=== PATIENT | female | born 1965 | race African-American/Black ===

== ENCOUNTER 2018-09-13 12:34 | Outpatient (CLI) | payer MEDICARE, OTHER ==
--- NOTE | 2018-09-13 14:52 | ULT ---
THYROID ULTRASOUND: INDICATIONS: Abnormal thyroid blood test. FINDINGS: Both lobes of the thyroid are mildly prominent in size, with the right lobe measuring 5.8 x 2.0 x 2.0 cm and the left lobe measuring 5.4 x 1.7 x 2.4 cm. Both lobes exhibit a homogeneous echotexture. In the left lobe, there are three hypoechoic nodules present. All three of these appear partially cy stic. The largest mid left lobe measures 1.3 x 1.0 cm. Another, slightly more inferior, measures 0. 5 x 0.8 x 1.2 cm. The smaller inferior left lobe measures 0.7 to 0.8 cm. In the right lobe, there are several tiny, hypoechoic, cystic appearing nodules. The largest in the inferior right lobe measures 3 to 4 mm. IMPRESSION: There are three partially cystic, complex nodules seen in the left lobe, as described above. Recomme nd six-month follow-up thyroid ultrasound to confirm stability. POS: JOEL
--- NOTE | 2018-09-29 15:48 | MMO ---
Bilateral MAMMO Bilat Screen [facility]. CLINICAL HISTORY: Patient is 53 years old and is seen for screening. The patient has no family history of breast cancer. 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 VIEWS: The views performed were: bilateral craniocaudal with tomosynthesis and bilateral mediolateral oblique with tomosynthesis. FILMS COMPARED: The present examination has been compared to prior imaging studies performed at [facility] on 03/15/2007 and 09/27/2014. MAMMOGRAM FINDINGS: There are scattered fibroglandular densities. There are vascular calcifications seen in both breasts. There are no suspicious masses, suspicious calcifications, or new areas of architectural distortion. IMPRESSION: A ROUTINE FOLLOW-UP MAMMOGRAM IN 1 YEAR IS RECOMMENDED. THE RESULTS OF THIS EXAM WERE SENT TO THE PATIENT. ACR BI-RADS Category 2 - Benign finding MAMMOGRAPHY NOTE: 1. A negative mammogram report should not delay a biopsy if a dominant of clinically suspicious mass is present. 2. Approximately 10% to 15% of breast cancers are not detected by mammography. 3. Adenosis and dense breasts may obscure an underlying neoplasm.
== END 2018-09-13 12:35 | disposition home or self-care (01) ==
LOC: BICMAMMO 12:34
PROVIDERS: ATTEND Family Medicine
DX: Z12.31 Encounter for screening mammogram for malignant neoplasm of breast (principal); R94.6 Abnormal results of thyroid function studies; E04.2 Nontoxic multinodular goiter; Z85.3 Personal history of malignant neoplasm of breast
CPT/HCPCS: 76536; 77063; 77067

== ENCOUNTER 2018-10-11 10:56 | Outpatient (CLI) | payer MEDICARE, MEDICAID ==
--- NOTE | 2018-10-11 12:28 | ULT ---
Renal sonogram with duplex evaluation HISTORY: Chronic renal disease. Hypertension. FINDINGS: The right kidney is 9.4 cm. Cysts arise from the cortex, measuring up to 2.1 cm the inferio r pole. No solid mass or hydronephrosis. Left kidney is 10.6 cm. Cysts arise from the cortex, measuring up to 2.2 cm medially. No hydronephros is or solid mass. Urinary bladder has a normal appearance. Good color and spectral Doppler flow within the abdominal aorta and renal arteries. No abnormally alexander vated peak systolic velocities. Resistive indices associated with arcuate arteries of each kidney are 0.6. IMPRESSION: No evidence of urinary tract obstruction. Renal cysts incidentally noted. No sonographic evidence of significant renal artery stenosis.
== END 2018-10-11 10:57 | disposition home or self-care (01) ==
LOC: ULT 10:56
PROVIDERS: ATTEND Internal Medicine Nephrology
DX: I12.9 Hypertensive chronic kidney disease with stage 1 through stage 4 chronic kidney disease, or unspecified chronic kidney disease (principal); N18.3 Chronic kidney disease, stage 3 (moderate)
CPT/HCPCS: 76700; 76770

== ENCOUNTER 2021-08-03 18:16 | Inpatient (IN) | payer MEDICARE, OTHER ==
[2021-08-03] MEDS ORDERED: Morphine 4 MG/ML VIAL ONE (21:45)
[2021-08-03] MEDS ORDERED: Ondansetron PF 4 MG/2 ML Vial IVP PRN (22:15)
[2021-08-03] MEDS ORDERED: Acetaminophen 325 MG TAB PO PRN (22:15)
[2021-08-03] MEDS ORDERED: Ondansetron ODT 4 MG TAB SL PRN (22:15)
[2021-08-03] MEDS ORDERED: Heparin 10,000 UNITS/ 10 ML VIAL SLOW IVP SCH (22:30)
[2021-08-03] MEDS ORDERED: Heparin 25,000 units/D5W 500 ML IV SCH (22:30)
[2021-08-03 23:00] LABS: ALT (SGPT) 711 U/L (8-55); AST (SGOT) 1908 U/L (5-34); Albumin 3.5 g/dL (3.5-5.0); Alkaline Phosphatase 80 U/L (40-110); Bilirubin, Direct 0.4 mg/dL (0.1-0.3); Bilirubin, Total 0.5 mg/dL (0.2-1.2); Protein, Total 7.3 g/dL (6.0-8.3)
[2021-08-03 23:45] LABS: Acetaminophen Less than 6.0 mcg/mL (10.0-30.0)
[2021-08-04 00:58] VITALS: BMI 25.6
[2021-08-04] MEDS: Sodium Chloride 0.9% 1,000 ML IV SCH ×3 (01:26→21:04)
[2021-08-04] MEDS: Morphine 4 MG/ML VIAL SLOW IVP PRN ×2 (01:32→05:47)
[2021-08-04 04:39] LABS: Anion Gap 7 mmol/L (10-20); BUN (Urea Nitrogen) 26 mg/dL (9.8-20.1); Calc. Creatinine Clearance 40 mL/min (70-130); Calcium 9.9 mg/dL (7.8-10.44); Carbon Dioxide 22 mmol/L (22-29); Chloride 115 mmol/L (98-107); Glucose 104 mg/dL (70-105); Potassium 4.1 mmol/L (3.5-5.1); Sodium 140 mmol/L (136-145)
[2021-08-04 05:11] LABS: HBSAg Index 0.22 S/CO (0-0.99); Hep B Surf Ag Non-Reactive S/CO (NonReactive)
[2021-08-04 05:13] LABS: HBCM Index 0.07 S/CO (0-0.79); Hep A IgM AB Non-Reactive (NonReactive); Hep A IgM S/CO 0.12 S/CO (0-0.79); Hepatitis B Core IgM Abs Non-Reactive (NonReactive)
[2021-08-04 05:14] LABS: Hep C IgG Ab Reflex HepC Qnt (NonReactive); Hep C Index 6.02 S/CO (0-0.79)
[2021-08-04 05:31] LABS: Hemoglobin 14.1 g/dL (12.0-16.0); Mean Corpuscular HGB CONC 32.2 g/dL (32.0-36.0); Mean Corpuscular Hemoglobin 32.9 pg (27.0-31.0); Mean Platelet Volume 7.6 fL (7.4-10.4); Platelet Count 188 thou/uL (130-400); RBC Distribution Width 12.3 % (11.5-14.5); White Blood Cell (WBC) Count 6.4 thou/uL (4.8-10.8)
[2021-08-04] MEDS: Dextrose 5 %-0.45 % NaCl 1,000 ML IV SCH ×2 (05:46→10:08)
[2021-08-04 06:33] LABS: Band 7 % (5-11); Lymphocytes 28 % (21-51); MDiff Complete? YES; Monocytes 2 % (0-10); Neutrophil 63 % (42-75)
[2021-08-04 06:53] LABS: SARS-CoV-2 NAA Rapid Test Not Detected (NotDetected)
[2021-08-04 07:06] LABS: PTT 234.4 sec (22.9-36.1)
[2021-08-04] MEDS: Fentanyl 100 MCG/2 ML VIAL SLOW IVP PRN ×3 (12:01→20:56)
[2021-08-04] MEDS ORDERED: Aspirin 81 mg Enteric Coated Tablet PO SCH (15:30)
[2021-08-04] MEDS: Enoxaparin Sodium 40 MG/0.4 ML SYRINGE SC SCH (20:58)
[2021-08-05] MEDS: Fentanyl 100 MCG/2 ML VIAL SLOW IVP PRN ×2 (03:02→22:00)
[2021-08-05] MEDS: Enoxaparin Sodium 40 MG/0.4 ML SYRINGE SC SCH (08:33)
[2021-08-05] MEDS: Sodium Chloride 0.9% 1,000 ML IV SCH ×2 (08:35→18:33)
[2021-08-05] MEDS: Morphine 4 MG/ML VIAL SLOW IVP PRN ×4 (08:36→19:36)
[2021-08-05] MEDS ORDERED: Aspirin 81 mg Enteric Coated Tablet PO SCH (09:00)
[2021-08-05 10:28] LABS: ALT (SGPT) 397 U/L (8-55); AST (SGOT) 239 U/L (5-34); Albumin 3.4 g/dL (3.5-5.0); Alkaline Phosphatase 78 U/L (40-110); Bilirubin, Direct 0.4 mg/dL (0.1-0.3); Bilirubin, Total 0.5 mg/dL (0.2-1.2); Protein, Total 7.2 g/dL (6.0-8.3)
[2021-08-05] MEDS ORDERED: Heparin 10,000 UNITS/ 10 ML VIAL ONE (12:28)
[2021-08-05] MEDS ORDERED: hydrALAZINE 20 MG/ML VIAL ONE (13:01)
[2021-08-05] MEDS ORDERED: Fentanyl 100 MCG/2 ML VIAL ONE (13:02)
[2021-08-05] MEDS ORDERED: Amlodipine 10 MG TAB PO SCH (15:45)
[2021-08-05 16:20] LABS: Anion Gap 18 mmol/L (10-20); BUN (Urea Nitrogen) 14 mg/dL (9.8-20.1); Calc. Creatinine Clearance 61 mL/min (70-130); Calcium 10.5 mg/dL (7.8-10.44); Carbon Dioxide 14 mmol/L (22-29); Chloride 112 mmol/L (98-107); Glucose 100 mg/dL (70-105); Potassium 3.9 mmol/L (3.5-5.1); Sodium 140 mmol/L (136-145)
[2021-08-05] MEDS ORDERED: GoLYTELY 4,000 ml Bottle PO SCH ×2 (18:00→20:00)
[2021-08-06] MEDS: Morphine 4 MG/ML VIAL SLOW IVP PRN ×2 (00:28→20:51)
[2021-08-06] MEDS: Sodium Chloride 0.9% 1,000 ML IV SCH (03:00)
[2021-08-06] MEDS: Fentanyl 100 MCG/2 ML VIAL SLOW IVP PRN (04:26)
[2021-08-06] MEDS ORDERED: Protamine Sulfate 50 MG/5 ML VIAL ONE ×2 (06:21→09:25)
[2021-08-06] MEDS ORDERED: Heparin 5,000 UNITS/ML VIAL ONE (06:21)
[2021-08-06] MEDS ORDERED: Bupivacaine PF 0.5% 30 ML VIAL ONE (06:21)
[2021-08-06] MEDS ORDERED: EPINEPHrine 1 MG/ML AMP ONE (06:21)
[2021-08-06] MEDS ORDERED: Dexamethasone 4 mg/ml Vial ONE (06:21)
[2021-08-06] MEDS ORDERED: Fentanyl 250 MCG/5 ML VIAL ONE ×2 (06:50→11:56)
[2021-08-06] MEDS ORDERED: Dexmedetomidine 200 MCG/2 ML VIAL ONE (06:51)
[2021-08-06] MEDS ORDERED: Lidocaine 1% MPF 2 ML VIAL ONE (07:00)
[2021-08-06] MEDS ORDERED: Heparin 10,000 UNITS/1 ML VIAL 30,000 UNITS in Sodium Chloride 0.9% 1,000 ML FS SCH (07:00)
[2021-08-06] MEDS ORDERED: PROPOFOL 200 MG/20 ML VIAL ONE (07:01)
[2021-08-06] MEDS ORDERED: Vecuronium 10 MG VIAL ONE (07:01)
[2021-08-06] MEDS ORDERED: Ondansetron PF 4 MG/2 ML Vial ONE (07:01)
[2021-08-06] MEDS ORDERED: Dexamethasone 20 MG/5 ML VIAL ONE (07:01)
[2021-08-06] MEDS ORDERED: Lidocaine 1% PF 5 ML VIAL ONE (07:01)
[2021-08-06] MEDS ORDERED: Midazolam HCl 2 mg/2 ml Vial ONE (07:03)
[2021-08-06] MEDS ORDERED: Ondansetron ODT 4 MG TAB ONE (07:03)
[2021-08-06] MEDS ORDERED: ceFAZolin Sodium (SDC) 2 GM/100 ML BAG ONE (07:24)
[2021-08-06] MEDS ORDERED: ceFAZolin 2 GM/Dextrose 50 ML 2 GM in Premix Bag 1 BAG IVPB SCH (07:30)
[2021-08-06] MEDS ORDERED: Albumin 5% 500 ML ONE (08:27)
[2021-08-06] MEDS ORDERED: Amlodipine 10 MG TAB PO SCH (09:00)
[2021-08-06] MEDS ORDERED: Phenylephrine 40 MG in Sodium Chloride 0.9% 250 ML 250 ML IVPB PRN (10:25)
[2021-08-06] MEDS ORDERED: Morphine 2 MG/ML VIAL SLOW IVP PRN (10:25)
[2021-08-06] MEDS ORDERED: Promethazine HCl 25 MG/ML VIAL IM PRN (10:25)
[2021-08-06] MEDS ORDERED: Acetaminophen 325 MG TAB PO PRN (10:25)
[2021-08-06] MEDS ORDERED: hydrALAZINE 20 MG/ML VIAL SLOW IVP PRN ×2 (10:25→15:37)
[2021-08-06] MEDS ORDERED: Morphine 4 MG/ML VIAL SLOW IVP PRN (10:25)
[2021-08-06] MEDS ORDERED: Nitroglycerin 50 MG/250 ML BOT 250 ML IVPB PRN (10:25)
[2021-08-06] MEDS ORDERED: Ondansetron PF 4 MG/2 ML Vial IVP PRN (10:25)
[2021-08-06] MEDS ORDERED: Sodium Chloride For Inhalation 0.9% 3 ML NEB ONE (10:31)
[2021-08-06] MEDS ORDERED: Promethazine HCl 25 MG in Sodium Chloride 0.9% 50 ML IVPB PRN (13:21)
[2021-08-06] MEDS ORDERED: Promethazine HCl 25 MG SUPP PR PRN (13:23)
[2021-08-06] MEDS: CEFAZOLIN 2 GM in Sodium Chloride 0.9% 100 ML IVPB SCH ×2 (14:19→20:51)
[2021-08-06] MEDS: D5 1/2 NS w/20 mEq KCL 1,000 ML IV SCH ×2 (14:22→23:54)
[2021-08-06 18:18] LABS: #Lymphocytes 0.5 thou/uL (1.20-3.40); #Monocytes 0.3 thou/uL (0.11-0.59); #Neutrophils 6.9 thou/uL (1.40-6.50); %Basophils 0.1 % (0.0-1.0); %Eosinophils 0.1 % (0.0-10.0); %Lymphocytes 5.9 % (21.0-51.0); %Monocytes 3.9 % (0.0-10.0); %Neutrophils 89.9 % (42.0-75.0); Hemoglobin 11.7 g/dL (12.0-16.0); Mean Corpuscular HGB CONC 32.2 g/dL (32.0-36.0); Mean Corpuscular Hemoglobin 31.5 pg (27.0-31.0); Mean Corpuscular Volume 97.7 fL (78.0-98.0); Platelet Count 173 thou/uL (130-400); RBC Distribution Width 12.4 % (11.5-14.5); Red Blood Cell (RBC) Count 3.73 mill/uL (4.20-5.40); White Blood Cell (WBC) Count 7.7 thou/uL (4.8-10.8)
[2021-08-06 18:52] LABS: ALT (SGPT) 166 U/L (8-55); AST (SGOT) 64 U/L (5-34); Albumin 3.3 g/dL (3.5-5.0); Alkaline Phosphatase 58 U/L (40-110); Anion Gap 12 mmol/L (10-20); BUN (Urea Nitrogen) 12 mg/dL (9.8-20.1); Bilirubin, Total 0.6 mg/dL (0.2-1.2); Calc. Creatinine Clearance 64 mL/min (70-130); Calcium 8.7 mg/dL (7.8-10.44); Carbon Dioxide 17 mmol/L (22-29); Chloride 112 mmol/L (98-107); Globulin 3.3 g/dL (2.4-3.5); Glucose 201 mg/dL (70-105); Potassium 3.7 mmol/L (3.5-5.1); Protein, Total 6.6 g/dL (6.0-8.3); Sodium 137 mmol/L (136-145)
[2021-08-07] MEDS: Morphine 4 MG/ML VIAL SLOW IVP PRN ×4 (02:44→13:49)
[2021-08-07 04:09] LABS: #Lymphocytes 0.8 thou/uL (1.20-3.40); #Monocytes 0.6 thou/uL (0.11-0.59); #Neutrophils 8.7 thou/uL (1.40-6.50); %Basophils 0.1 % (0.0-1.0); %Eosinophils 0.1 % (0.0-10.0); %Lymphocytes 8.2 % (21.0-51.0); %Monocytes 5.5 % (0.0-10.0); %Neutrophils 86.2 % (42.0-75.0); Hemoglobin 10.9 g/dL (12.0-16.0); Mean Corpuscular HGB CONC 32.9 g/dL (32.0-36.0); Mean Corpuscular Hemoglobin 32.5 pg (27.0-31.0); Mean Corpuscular Volume 98.7 fL (78.0-98.0); Mean Platelet Volume 7.4 fL (7.4-10.4); Platelet Count 171 thou/uL (130-400); RBC Distribution Width 12.2 % (11.5-14.5); Red Blood Cell (RBC) Count 3.34 mill/uL (4.20-5.40); White Blood Cell (WBC) Count 10.1 thou/uL (4.8-10.8)
[2021-08-07 04:29] LABS: Anion Gap 12 mmol/L (10-20); BUN (Urea Nitrogen) 11 mg/dL (9.8-20.1); Calc. Creatinine Clearance 66 mL/min (70-130); Calcium 9.1 mg/dL (7.8-10.44); Carbon Dioxide 17 mmol/L (22-29); Chloride 113 mmol/L (98-107); Glucose 148 mg/dL (70-105); Potassium 4.1 mmol/L (3.5-5.1); Sodium 138 mmol/L (136-145)
[2021-08-07] MEDS: CEFAZOLIN 2 GM in Sodium Chloride 0.9% 100 ML IVPB SCH (05:08)
[2021-08-07] MEDS: Amlodipine 10 MG TAB PO SCH (08:44)
[2021-08-07] MEDS: Lisinopril 20 MG TAB PO SCH (08:45)
[2021-08-07] MEDS: Aspirin 81 mg Enteric Coated Tablet PO SCH (08:46)
[2021-08-07] MEDS: Enoxaparin Sodium 40 MG/0.4 ML SYRINGE SC SCH ×2 (08:46→20:42)
[2021-08-07] MEDS: D5 1/2 NS w/20 mEq KCL 1,000 ML IV SCH ×2 (08:46→11:28)
[2021-08-07] MEDS: Clopidogrel Bisulfate 75 MG TAB PO SCH (08:46)
[2021-08-07] MEDS ORDERED: Albuterol 200 PUFF (6.7GM INHALER) INH PRN (09:49)
[2021-08-07] MEDS: traMADol HCl 50 MG TAB PO PRN ×2 (10:30→17:08)
[2021-08-07] MEDS: Mometasone 200 MCG/Formoterol 5 MCG 120 PUFF INHALER INH SCH (19:16)
[2021-08-08] MEDS: traMADol HCl 50 MG TAB PO PRN ×2 (03:04→16:17)
[2021-08-08 04:01] LABS: Hemoglobin 10.6 g/dL (12.0-16.0); Mean Corpuscular HGB CONC 32.5 g/dL (32.0-36.0); Mean Corpuscular Hemoglobin 32.8 pg (27.0-31.0); Mean Platelet Volume 7.8 fL (7.4-10.4); Platelet Count 194 thou/uL (130-400); RBC Distribution Width 12.9 % (11.5-14.5); Red Blood Cell (RBC) Count 3.23 mill/uL (4.20-5.40); White Blood Cell (WBC) Count 9.4 thou/uL (4.8-10.8)
[2021-08-08 04:24] LABS: ALT (SGPT) 76 U/L (8-55); AST (SGOT) 39 U/L (5-34); Albumin 3.3 g/dL (3.5-5.0); Alkaline Phosphatase 53 U/L (40-110); Anion Gap 9 mmol/L (10-20); BUN (Urea Nitrogen) 19 mg/dL (9.8-20.1); Bilirubin, Total 0.3 mg/dL (0.2-1.2); Calc. Creatinine Clearance 37 mL/min (70-130); Calcium 9.9 mg/dL (7.8-10.44); Carbon Dioxide 22 mmol/L (22-29); Chloride 113 mmol/L (98-107); Globulin 3.3 g/dL (2.4-3.5); Glucose 99 mg/dL (70-105); Potassium 4.5 mmol/L (3.5-5.1); Protein, Total 6.6 g/dL (6.0-8.3); Sodium 139 mmol/L (136-145)
[2021-08-08] MEDS: Morphine 4 MG/ML VIAL SLOW IVP PRN ×2 (05:50→20:11)
[2021-08-08] MEDS: Mometasone 200 MCG/Formoterol 5 MCG 120 PUFF INHALER INH SCH ×2 (08:40→23:04)
[2021-08-08] MEDS: Enoxaparin Sodium 40 MG/0.4 ML SYRINGE SC SCH ×2 (09:16→20:11)
[2021-08-08] MEDS: Clopidogrel Bisulfate 75 MG TAB PO SCH (09:17)
[2021-08-08] MEDS: Lisinopril 20 MG TAB PO SCH (09:17)
[2021-08-08] MEDS: Amlodipine 10 MG TAB PO SCH (09:17)
[2021-08-08] MEDS: Aspirin 81 mg Enteric Coated Tablet PO SCH (09:17)
[2021-08-09] MEDS: Morphine 4 MG/ML VIAL SLOW IVP PRN (03:59)
[2021-08-09] MEDS: traMADol HCl 50 MG TAB PO PRN ×2 (05:56→15:20)
[2021-08-09] MEDS ORDERED: Morphine 4 MG/ML VIAL SLOW IVP PRN (08:28)
[2021-08-09] MEDS: Enoxaparin Sodium 40 MG/0.4 ML SYRINGE SC SCH ×2 (09:00→20:41)
[2021-08-09] MEDS: Amlodipine 10 MG TAB PO SCH (09:01)
[2021-08-09] MEDS: Aspirin 81 mg Enteric Coated Tablet PO SCH (09:02)
[2021-08-09] MEDS: Clopidogrel Bisulfate 75 MG TAB PO SCH (09:02)
[2021-08-09] MEDS: Mometasone 200 MCG/Formoterol 5 MCG 120 PUFF INHALER INH SCH ×2 (10:59→18:59)
[2021-08-09 14:17] LABS: ALT (SGPT) 49 U/L (8-55); AST (SGOT) 45 U/L (5-34); Albumin 3.2 g/dL (3.5-5.0); Alkaline Phosphatase 62 U/L (40-110); Anion Gap 14 mmol/L (10-20); BUN (Urea Nitrogen) 23 mg/dL (9.8-20.1); Bilirubin, Total 0.3 mg/dL (0.2-1.2); Calc. Creatinine Clearance 37 mL/min (70-130); Calcium 10.3 mg/dL (7.8-10.44); Carbon Dioxide 18 mmol/L (22-29); Chloride 114 mmol/L (98-107); Globulin 3.6 g/dL (2.4-3.5); Glucose 103 mg/dL (70-105); Potassium 4.3 mmol/L (3.5-5.1); Protein, Total 6.8 g/dL (6.0-8.3); Sodium 142 mmol/L (136-145)
[2021-08-09] MEDS: Sodium Chloride 0.9% 1,000 ML IV SCH (19:16)
[2021-08-09] MEDS: Gabapentin 100 MG CAP PO PRN (20:39)
[2021-08-10] MEDS: traMADol HCl 50 MG TAB PO PRN ×4 (00:38→21:23)
[2021-08-10 04:14] LABS: Hemoglobin 9.8 g/dL (12.0-16.0); Mean Corpuscular Hemoglobin 32.2 pg (27.0-31.0); Mean Platelet Volume 7.4 fL (7.4-10.4); Platelet Count 225 thou/uL (130-400); RBC Distribution Width 12.6 % (11.5-14.5); Red Blood Cell (RBC) Count 3.06 mill/uL (4.20-5.40); White Blood Cell (WBC) Count 6.8 thou/uL (4.8-10.8)
[2021-08-10 04:37] LABS: Anion Gap 10 mmol/L (10-20); BUN (Urea Nitrogen) 18 mg/dL (9.8-20.1); Calc. Creatinine Clearance 50 mL/min (70-130); Carbon Dioxide 19 mmol/L (22-29); Chloride 116 mmol/L (98-107); Glucose 96 mg/dL (70-105); Sodium 141 mmol/L (136-145)
[2021-08-10] MEDS: Mometasone 200 MCG/Formoterol 5 MCG 120 PUFF INHALER INH SCH ×2 (06:45→19:35)
[2021-08-10] MEDS: Sodium Chloride 0.9% 1,000 ML IV SCH (08:07)
[2021-08-10] MEDS: Gabapentin 100 MG CAP PO PRN (08:12)
[2021-08-10] MEDS: Amlodipine 10 MG TAB PO SCH (09:00)
[2021-08-10] MEDS: Enoxaparin Sodium 40 MG/0.4 ML SYRINGE SC SCH ×2 (09:00→21:24)
[2021-08-10] MEDS: Aspirin 81 mg Enteric Coated Tablet PO SCH (09:00)
[2021-08-10] MEDS: Clopidogrel Bisulfate 75 MG TAB PO SCH (09:00)
[2021-08-10] MEDS ORDERED: Gabapentin 100 MG CAP PO SCH (10:00)
[2021-08-10] MEDS: Gabapentin 100 MG CAP PO SCH ×2 (14:33→21:23)
[2021-08-10 19:01] LABS: SARS-CoV-2 PCR by NAA Not Detected (NotDetected)
[2021-08-10 21:00] LABS: Anion Gap 14 mmol/L (10-20); BUN (Urea Nitrogen) 13 mg/dL (9.8-20.1); Calc. Creatinine Clearance 47 mL/min (70-130); Calcium 10.1 mg/dL (7.8-10.44); Carbon Dioxide 20 mmol/L (22-29); Chloride 111 mmol/L (98-107); Glucose 114 mg/dL (70-105); Magnesium 1.2 mg/dL (1.6-2.6); Phosphorus 2.6 mg/dL (2.3-4.7); Potassium 4.1 mmol/L (3.5-5.1); Sodium 141 mmol/L (136-145)
[2021-08-10 21:04] LABS: Troponin I 0.028 ng/mL (< 0.028)
[2021-08-10] MEDS: Metoprolol Tartrate 25 MG TAB PO SCH (21:23)
[2021-08-10] MEDS ORDERED: Docusate 100 MG CAP PO SCH (23:30)
[2021-08-11] MEDS: Mometasone 200 MCG/Formoterol 5 MCG 120 PUFF INHALER INH SCH ×2 (06:57→19:22)
[2021-08-11] MEDS: Aspirin 81 mg Enteric Coated Tablet PO SCH (08:28)
[2021-08-11] MEDS: Docusate 100 MG CAP PO SCH ×2 (08:28→19:59)
[2021-08-11] MEDS: Gabapentin 100 MG CAP PO SCH ×2 (08:28→19:59)
[2021-08-11] MEDS: Metoprolol Tartrate 25 MG TAB PO SCH ×2 (08:30→20:00)
[2021-08-11] MEDS: Amlodipine 10 MG TAB PO SCH (08:30)
[2021-08-11] MEDS: traMADol HCl 50 MG TAB PO PRN ×2 (08:31→20:00)
[2021-08-11] MEDS: Enoxaparin Sodium 40 MG/0.4 ML SYRINGE SC SCH ×2 (08:33→20:00)
[2021-08-11] MEDS: Clopidogrel Bisulfate 75 MG TAB PO SCH (08:33)
[2021-08-11] MEDS ORDERED: Gabapentin 100 MG CAP PO SCH (15:00)
[2021-08-11] MEDS ORDERED: Activase 2 MG VIAL CATH SCH (16:00)
[2021-08-12] MEDS: Mometasone 200 MCG/Formoterol 5 MCG 120 PUFF INHALER INH SCH ×2 (06:43→19:00)
[2021-08-12] MEDS: Gabapentin 100 MG CAP PO SCH ×3 (09:36→20:54)
[2021-08-12] MEDS: Amlodipine 10 MG TAB PO SCH (09:36)
[2021-08-12] MEDS: Docusate 100 MG CAP PO SCH ×2 (09:36→20:55)
[2021-08-12] MEDS: Metoprolol Tartrate 25 MG TAB PO SCH ×2 (09:36→20:55)
[2021-08-12] MEDS: Aspirin 81 mg Enteric Coated Tablet PO SCH (09:36)
[2021-08-12] MEDS: Enoxaparin Sodium 40 MG/0.4 ML SYRINGE SC SCH ×2 (09:36→20:55)
[2021-08-12] MEDS: Clopidogrel Bisulfate 75 MG TAB PO SCH (09:36)
[2021-08-12] MEDS: traMADol HCl 50 MG TAB PO PRN ×2 (09:44→20:53)
[2021-08-12] MEDS ORDERED: Atorvastatin Calcium 40 MG TAB PO SCH (21:00)
[2021-08-13] MEDS: traMADol HCl 50 MG TAB PO PRN ×2 (05:28→12:13)
[2021-08-13] MEDS: Mometasone 200 MCG/Formoterol 5 MCG 120 PUFF INHALER INH SCH (07:41)
[2021-08-13] MEDS ORDERED: Ferrous Sulfate 325 MG TAB PO SCH (08:00)
[2021-08-13] MEDS ORDERED: Multivitamin W/ Minerals 1 TAB PO SCH (09:00)
[2021-08-13] MEDS ORDERED: Polyethylene Glycol 3350 17 GM Packet PO SCH (09:00)
[2021-08-13] MEDS: Amlodipine 10 MG TAB PO SCH (09:09)
[2021-08-13] MEDS: Aspirin 81 mg Enteric Coated Tablet PO SCH (09:10)
[2021-08-13] MEDS: Enoxaparin Sodium 40 MG/0.4 ML SYRINGE SC SCH (09:10)
[2021-08-13] MEDS: Clopidogrel Bisulfate 75 MG TAB PO SCH (09:10)
[2021-08-13] MEDS: Gabapentin 100 MG CAP PO SCH ×2 (09:10→16:43)
[2021-08-13] MEDS: Metoprolol Tartrate 25 MG TAB PO SCH (09:10)
[2021-08-13] MEDS: Docusate 100 MG CAP PO SCH (09:11)
[2021-08-13 10:40] LABS: Actual Bicarbonate (HCO3a) 16.2 mEq/L (22-28); Analyzer IN Cardio OR; Base Excess (BEa) -8.9 mEq/L (-2.0 to +3.0); CO2 Tension 32.1 mmHg (35.0-45.0); Calcium, Ionized (arterial) 1.13 mmol/L (1.12-1.30); Carboxyhemoglobin (COHb) 0.2 gm% (0.0-3.0); Hemoglobin (Hb) 9.4 g/dL (12.0-16.0); O2 Tension (PaO2), arterial 138.2 mmHg (80.0-100.0); Potassium - ABG Lab 3.31 mmol/L (3.70-5.30); Puncture Site Arterial Line; pH, Arterial 7.32 (7.35-7.45)
[2021-08-13 12:23] VITALS: BP 120/76; TEMP 98.4
[2021-08-13 22:36] LABS: HCV log10 6.033 (.); Hep C PCR-Quant 1080000 IU/mL (.)
== END 2021-08-13 15:34 | DRG 271 ==
LOC: ERS 18:16 → 2NO 22:13 → CCU 08-06 07:49 → 2NO 08-08 19:32
PROVIDERS: ADMIT Student in an Organized Health Care Education/Training Program; ATTEND Internal Medicine
PROC: 047H3ZZ Dilation of Right External Iliac Artery, Percutaneous Approach (ICD-10-PCS; 2021-08-05)
PROC: 04100JJ Bypass Abdominal Aorta to Left Femoral Artery with Synthetic Substitute, Open Approach (ICD-10-PCS; principal; 2021-08-06)
PROC: 04CL0ZZ Extirpation of Matter from Left Femoral Artery, Open Approach (ICD-10-PCS; 2021-08-06)
PROC: 04CN0ZZ Extirpation of Matter from Left Popliteal Artery, Open Approach (ICD-10-PCS; 2021-08-06)
DX: T82.858A Stenosis of other vascular prosthetic devices, implants and grafts, initial encounter (principal); N17.9 Acute kidney failure, unspecified; I47.1 Supraventricular tachycardia; I69.359 Hemiplegia and hemiparesis following cerebral infarction affecting unspecified side; Z20.822 Contact with and (suspected) exposure to COVID-19; M10.9 Gout, unspecified; Y83.8 Other surgical procedures as the cause of abnormal reaction of the patient, or of later complication, without mention of misadventure at the time of the procedure; I12.9 Hypertensive chronic kidney disease with stage 1 through stage 4 chronic kidney disease, or unspecified chronic kidney disease; F17.210 Nicotine dependence, cigarettes, uncomplicated; E78.5 Hyperlipidemia, unspecified; N18.30 Chronic kidney disease, stage 3 unspecified; D64.89 Other specified anemias; Z90.710 Acquired absence of both cervix and uterus; Z79.899 Other long term (current) drug therapy; I69.328 Other speech and language deficits following cerebral infarction; I69.398 Other sequelae of cerebral infarction
CPT/HCPCS: 36246; 36415; 36416; 37220; 71045; 76705; 80048; 80053; 80074; 80076; 80143; 82805; 83735; 84100; 84484; 85025; 85027; 85347; 85730; 86850; 86900; 86901; 87522; 93005; 93010; 93923; 94640; 96374; 96375; 96376; 80307; C1751; C1776; C1889; J0171; J0360; J0690; J1100; J1642; J1644; J1650; J2250; J2270; J2405; J2704; J2720; J2997; J3010; J3475; J3480; J3490; J7042; J7050; J7620; P9045; Q0162; S0020; U0002; U0003; U0005

== ENCOUNTER 2022-05-01 18:37 | Inpatient (IN) | payer OTHER ==
[2022-05-01] MEDS ORDERED: Acetaminophen 325 MG TAB PO PRN (20:12)
[2022-05-01] MEDS ORDERED: Ondansetron PF 4 MG/2 ML Vial IVP PRN (20:12)
[2022-05-01] MEDS ORDERED: Ondansetron ODT 4 MG TAB PO PRN (20:12)
[2022-05-01] MEDS ORDERED: Acetaminophen 650 MG Suppository PR PRN (20:12)
[2022-05-01] MEDS ORDERED: Furosemide 40 MG/4 ML VIAL SLOW IVP SCH (20:15)
[2022-05-01] MEDS ORDERED: methylPREDNISolone Sod Succ/PF 125 MG/2 ML VIAL IVP SCH (20:15)
[2022-05-01 20:25] LABS: Actual Bicarbonate (HCO3a) 20.5 mEq/L (22-28); Analyzer IN Cardio ER; Base Excess (BEa) -4.4 mEq/L (-2.0 to +3.0); CO2 Tension 36.9 mmHg (35.0-45.0); Calcium, Ionized (arterial) 1.25 mmol/L (1.12-1.30); Carboxyhemoglobin (COHb) 0.7 gm% (0.0-3.0); Hemoglobin (Hb) 12.8 g/dL (12.0-16.0); pH, Arterial 7.36 (7.35-7.45)
[2022-05-01 20:36] LABS: O2 Tension (PaO2), arterial 37.9 mmHg (80.0-100.0); Puncture Site R RAD
[2022-05-01 20:37] LABS: ALV-art Gradient 172.655 mmHg (0-20)
[2022-05-01 21:57] LABS: Troponin I Less than 0.010 ng/mL (< 0.028)
[2022-05-01 22:10] LABS: SARS-CoV-2 NAA Rapid Test Not Detected (NotDetected)
[2022-05-01] MEDS: Azithromycin 500 MG in Sodium Chloride 0.9% 250 ML 250 ML IVPB SCH (22:57)
[2022-05-01 23:01] VITALS: BMI 26.0
[2022-05-01 23:27] LABS: Actual Bicarbonate (HCO3a) 19.7 mEq/L (22-28); Calcium, Ionized (arterial) 1.23 mmol/L (1.12-1.30); Carboxyhemoglobin (COHb) 0.6 gm% (0.0-3.0); Hemoglobin (Hb) 13.1 g/dL (12.0-16.0); O2 Tension (PaO2), arterial 65.9 mmHg (80.0-100.0); Potassium - ABG Lab 3.85 mmol/L (3.70-5.30); pH, Arterial 7.41 (7.35-7.45)
[2022-05-01 23:29] LABS: Puncture Site LBA
[2022-05-01] MEDS ORDERED: Vancomycin 1.5 GRAM/300 ML BAG 1.5 GM in Premix Bag 1 BAG IVPB SCH (23:30)
[2022-05-02 00:07] LABS: Hemoglobin 11.9 g/dL (12.0-16.0); Mean Corpuscular HGB CONC 32.9 g/dL (32.0-36.0); Mean Corpuscular Hemoglobin 31.6 pg (27.0-31.0); Mean Corpuscular Volume 96.1 fl (78.0-98.0); Mean Platelet Volume 8.3 fL (7.4-10.4); Platelet Count 228 10x3/uL (130-400); RBC Distribution Width 11.8 % (11.5-14.5); Red Blood Cell (RBC) Count 3.77 mill/uL (4.20-5.40); White Blood Cell (WBC) Count 9.4 10x3/uL (4.8-10.8)
[2022-05-02 00:22] LABS: Anion Gap 15 mmol/L (10-20); BUN (Urea Nitrogen) 24 mg/dL (9.8-20.1); Calc. Creatinine Clearance 37 mL/min (70-130); Calcium 9.7 mg/dL (7.8-10.44); Carbon Dioxide 19 mmol/L (22-29); Chloride 109 mmol/L (98-107); Estimated GFR 31; Glucose 156 mg/dL (70-105); Magnesium 1.5 mg/dL (1.6-2.6); Potassium 3.7 mmol/L (3.5-5.1); Sodium 139 mmol/L (136-145)
[2022-05-02 01:04] LABS: Band 5 % (5-11); Lymphocytes 6 % (21-51); MDiff Complete? YES; Monocytes 11 % (0-10); Neutrophil 78 % (42-75); Platelet Morphology Comment Appears Adequate; RBC Morphology Normal
[2022-05-02 01:44] LABS: Lactic Acid 0.7 mmol/L (0.5-2.2)
[2022-05-02 02:03] LABS: Bacteria/HPF 3+ HPF (None Seen); Bilirubin Negative (Negative); Blood, Urine Negative (Negative); Clarity Clear (Clear); Glucose, Urine (Dipstick) Normal (Negative); Ketone, Urine Negative (Negative); Leukocyte Negative Leu/uL (Negative); Nitrite 2+ (Negative); Protein, Urine (Dipstick) 30 mg/dL (Neg-Trace); RBC/HPF 0-3 HPF (0-3); Specific Gravity, Urine 1.011 (1.002-1.036); Squamous Epithelial 0-3 HPF (0-3); Urobilinogen Normal mg/dL (Less than 2); WBC/HPF 0-3 HPF (0-3)
[2022-05-02 02:07] LABS: Urine Culture Reflex Yes Yes
[2022-05-02] MEDS ORDERED: Electrolyte Replacement Protocol 1 EACH FS SCH (02:45)
[2022-05-02] MEDS ORDERED: Magnesium 2 GM/50 ML(in water) 2 GM in Premix Bag 1 BAG IVPB SCH (03:15)
[2022-05-02 03:46] LABS: #Lymphocytes 0.8 thou/uL (1.20-3.40); #Monocytes 0.3 thou/uL (0.11-0.59); #Neutrophils 9.5 thou/uL (1.40-6.50); %Basophils 0.2 % (0.0-1.0); %Lymphocytes 7.2 % (21.0-51.0); %Monocytes 2.4 % (0.0-10.0); %Neutrophils 90.1 % (42.0-75.0); Mean Corpuscular Hemoglobin 32.2 pg (27.0-31.0); Mean Corpuscular Volume 97.5 fl (78.0-98.0); Mean Platelet Volume 8.2 fL (7.4-10.4); Platelet Count 229 10x3/uL (130-400); RBC Distribution Width 11.8 % (11.5-14.5); Red Blood Cell (RBC) Count 3.72 mill/uL (4.20-5.40); White Blood Cell (WBC) Count 10.5 10x3/uL (4.8-10.8)
[2022-05-02 03:57] LABS: Lactic Acid 1.4 mmol/L (0.5-2.2)
[2022-05-02 04:06] LABS: Anion Gap 15 mmol/L (10-20); BUN (Urea Nitrogen) 24 mg/dL (9.8-20.1); Calc. Creatinine Clearance 36 mL/min (70-130); Calcium 9.6 mg/dL (7.8-10.44); Carbon Dioxide 17 mmol/L (22-29); Chloride 110 mmol/L (98-107); Estimated GFR 30; Glucose 169 mg/dL (70-105); Potassium 4.4 mmol/L (3.5-5.1); Sodium 138 mmol/L (136-145)
[2022-05-02] MEDS: methylPREDNISolone Sod Succ 40 MG VIAL IVP SCH (08:26)
[2022-05-02] MEDS: Enoxaparin Sodium 80 MG/0.8 ML SYRINGE SC SCH (08:26)
[2022-05-02] MEDS: Benzonatate 100 MG CAP PO PRN ×2 (14:12→20:38)
[2022-05-02] MEDS ORDERED: Gabapentin 300 MG CAP PO SCH (15:00)
[2022-05-02] MEDS: Metoprolol Tartrate 25 MG TAB PO SCH (20:37)
[2022-05-02] MEDS: Gabapentin 100 MG CAP PO SCH (20:39)
[2022-05-02] MEDS ORDERED: traMADol HCl 50 MG TAB PO SCH (21:00)
[2022-05-02] MEDS: Azithromycin 500 MG in Sodium Chloride 0.9% 250 ML 250 ML IVPB SCH (21:14)
[2022-05-02] MEDS ORDERED: Vancomycin 1 GM in Premix Bag 1 BAG IVPB SCH (23:00)
[2022-05-02] MEDS ORDERED: Polyethylene Glycol 3350 17 GM Packet PO PRN (23:40)
[2022-05-03 03:06] LABS: #Lymphocytes 1.7 thou/uL (1.20-3.40); #Monocytes 0.7 thou/uL (0.11-0.59); #Neutrophils 13.3 thou/uL (1.40-6.50); %Basophils 0.1 % (0.0-1.0); %Eosinophils 0.1 % (0.0-10.0); %Monocytes 4.5 % (0.0-10.0); %Neutrophils 84.4 % (42.0-75.0); Mean Corpuscular HGB CONC 33.2 g/dL (32.0-36.0); Mean Corpuscular Hemoglobin 32.1 pg (27.0-31.0); Mean Corpuscular Volume 96.7 fl (78.0-98.0); Mean Platelet Volume 8.5 fL (7.4-10.4); Platelet Count 257 10x3/uL (130-400); Red Blood Cell (RBC) Count 3.75 mill/uL (4.20-5.40); White Blood Cell (WBC) Count 15.8 10x3/uL (4.8-10.8)
[2022-05-03 03:22] LABS: Anion Gap 12 mmol/L (10-20); BUN (Urea Nitrogen) 33 mg/dL (9.8-20.1); Calc. Creatinine Clearance 43 mL/min (70-130); Calcium 10.3 mg/dL (7.8-10.44); Carbon Dioxide 21 mmol/L (22-29); Chloride 110 mmol/L (98-107); Estimated GFR 37; Glucose 131 mg/dL (70-105); Potassium 3.6 mmol/L (3.5-5.1); Sodium 139 mmol/L (136-145)
[2022-05-03] MEDS: Enoxaparin Sodium 80 MG/0.8 ML SYRINGE SC SCH (07:53)
[2022-05-03] MEDS: methylPREDNISolone Sod Succ 40 MG VIAL IVP SCH (07:53)
[2022-05-03] MEDS: Benzonatate 100 MG CAP PO PRN ×2 (07:54→20:34)
[2022-05-03] MEDS: Gabapentin 100 MG CAP PO SCH ×3 (07:54→20:31)
[2022-05-03] MEDS: Ferrous Sulfate 325 MG TAB PO SCH (07:54)
[2022-05-03] MEDS: Metoprolol Tartrate 25 MG TAB PO SCH ×2 (07:55→20:31)
[2022-05-03] MEDS: Amlodipine 10 MG TAB PO SCH (07:55)
[2022-05-03] MEDS ORDERED: Furosemide 20 MG TAB PO PRN (09:00)
[2022-05-03] MEDS ORDERED: RESVERATROL 250 MG PO SCH (09:00)
[2022-05-03] MEDS ORDERED: cefTRIAXone\\ROCEPHIN 1 GM in Sodium Chloride 0.9% 100 ML IVPB SCH (13:00)
[2022-05-03 13:45] LABS: Magnesium 2.1 mg/dL (1.6-2.6)
[2022-05-03] MEDS: guaiFENesin ER 600 MG TAB PO SCH (20:24)
[2022-05-03] MEDS ORDERED: Cyclobenzaprine 10 MG TAB PO SCH (21:00)
[2022-05-03] MEDS: Azithromycin 500 MG in Sodium Chloride 0.9% 250 ML 250 ML IVPB SCH (21:48)
[2022-05-04] MEDS: Gabapentin 100 MG CAP PO SCH ×3 (08:34→20:25)
[2022-05-04] MEDS: methylPREDNISolone Sod Succ 40 MG VIAL IVP SCH (08:34)
[2022-05-04] MEDS: Enoxaparin Sodium 80 MG/0.8 ML SYRINGE SC SCH (08:34)
[2022-05-04] MEDS: Ferrous Sulfate 325 MG TAB PO SCH (08:34)
[2022-05-04] MEDS: Metoprolol Tartrate 25 MG TAB PO SCH ×2 (08:34→20:25)
[2022-05-04] MEDS: Amlodipine 10 MG TAB PO SCH (08:34)
[2022-05-04] MEDS: guaiFENesin ER 600 MG TAB PO SCH ×2 (08:34→20:25)
[2022-05-04 09:41] LABS: Actual Bicarbonate (HCO3a) 20.1 mEq/L (22-28); Base Excess (BEa) -3.4 mEq/L (-2.0 to +3.0); CO2 Tension 31.5 mmHg (35.0-45.0); Calcium, Ionized (arterial) 1.37 mmol/L (1.12-1.30); Carboxyhemoglobin (COHb) 0.3 gm% (0.0-3.0); Hemoglobin (Hb) 12.9 g/dL (12.0-16.0); Potassium - ABG Lab 3.58 mmol/L (3.70-5.30); pH, Arterial 7.42 (7.35-7.45)
[2022-05-04 09:44] LABS: O2 Tension (PaO2), arterial 58.5 mmHg (80.0-100.0)
[2022-05-04 09:45] LABS: ALV-art Gradient 51.855 mmHg (0-20); Puncture Site RRA
[2022-05-04] MEDS: Ampicillin/Sulbactam 1.5 GM in Sodium Chloride 0.9% 100 ML IVPB SCH ×2 (12:17→17:36)
[2022-05-04] MEDS ORDERED: Furosemide 40 MG/4 ML VIAL SLOW IVP SCH (13:00)
[2022-05-04] MEDS: Benzonatate 100 MG CAP PO PRN ×2 (13:56→21:24)
[2022-05-04] MEDS: Azithromycin 500 MG in Sodium Chloride 0.9% 250 ML 250 ML IVPB SCH ×2 (21:24→21:53)
[2022-05-04] MEDS ORDERED: GUAIFENESIN SF SOLN 200 MG/10 ML UDCUP PO PRN (23:36)
[2022-05-04] MEDS ORDERED: Cepastat Lozenges 1 LOZ PO PRN (23:37)
[2022-05-05] MEDS: Ampicillin/Sulbactam 1.5 GM in Sodium Chloride 0.9% 100 ML IVPB SCH ×4 (00:03→17:46)
[2022-05-05] MEDS: Gabapentin 100 MG CAP PO SCH ×3 (07:54→20:07)
[2022-05-05] MEDS: Enoxaparin Sodium 80 MG/0.8 ML SYRINGE SC SCH ×2 (07:54→20:09)
[2022-05-05] MEDS: methylPREDNISolone Sod Succ 40 MG VIAL IVP SCH (07:55)
[2022-05-05] MEDS: Ferrous Sulfate 325 MG TAB PO SCH (07:55)
[2022-05-05] MEDS: Amlodipine 10 MG TAB PO SCH (07:55)
[2022-05-05] MEDS: guaiFENesin ER 600 MG TAB PO SCH ×2 (07:56→20:08)
[2022-05-05] MEDS: Metoprolol Tartrate 25 MG TAB PO SCH ×2 (07:56→20:09)
[2022-05-05] MEDS: Benzonatate 100 MG CAP PO PRN (07:58)
[2022-05-05] MEDS ORDERED: FLU VACC QS2022-23(6MOS UP)/PF 60 MCG/0.5 ML SYRINGE IM ONE (09:00)
[2022-05-05 10:42] LABS: #Eosinphils 0.2 thou/uL (0.0-0.7); #Lymphocytes 1.8 thou/uL (1.20-3.40); #Monocytes 0.5 thou/uL (0.11-0.59); #Neutrophils 8.4 thou/uL (1.40-6.50); %Basophils 0.1 % (0.0-1.0); %Eosinophils 1.5 % (0.0-10.0); %Lymphocytes 16.5 % (21.0-51.0); %Monocytes 4.6 % (0.0-10.0); %Neutrophils 77.3 % (42.0-75.0); Hemoglobin 13.2 g/dL (12.0-16.0); Mean Corpuscular Hemoglobin 31.4 pg (27.0-31.0); Mean Corpuscular Volume 98.2 fl (78.0-98.0); Mean Platelet Volume 7.9 fL (7.4-10.4); Platelet Count 313 10x3/uL (130-400); Red Blood Cell (RBC) Count 4.19 mill/uL (4.20-5.40); White Blood Cell (WBC) Count 10.8 10x3/uL (4.8-10.8)
[2022-05-05 11:02] LABS: Anion Gap 12 mmol/L (10-20); BUN (Urea Nitrogen) 24 mg/dL (9.8-20.1); Calc. Creatinine Clearance 49 mL/min (70-130); Calcium 10.4 mg/dL (7.8-10.44); Carbon Dioxide 21 mmol/L (22-29); Chloride 110 mmol/L (98-107); Estimated GFR 44; Glucose 108 mg/dL (70-105); Potassium 4.2 mmol/L (3.5-5.1); Sodium 139 mmol/L (136-145)
[2022-05-05] MEDS: Azithromycin 500 MG in Sodium Chloride 0.9% 250 ML 250 ML IVPB SCH (21:28)
[2022-05-06] MEDS: Ampicillin/Sulbactam 1.5 GM in Sodium Chloride 0.9% 100 ML IVPB SCH ×3 (00:31→11:19)
[2022-05-06] MEDS: Amlodipine 10 MG TAB PO SCH (07:59)
[2022-05-06] MEDS: methylPREDNISolone Sod Succ 40 MG VIAL IVP SCH (07:59)
[2022-05-06] MEDS: Enoxaparin Sodium 80 MG/0.8 ML SYRINGE SC SCH (07:59)
[2022-05-06] MEDS: Metoprolol Tartrate 25 MG TAB PO SCH (08:00)
[2022-05-06] MEDS: guaiFENesin ER 600 MG TAB PO SCH (08:00)
[2022-05-06] MEDS: Ferrous Sulfate 325 MG TAB PO SCH (08:00)
[2022-05-06] MEDS: Gabapentin 100 MG CAP PO SCH (08:00)
[2022-05-06 08:38] VITALS: BP 142/89; TEMP 97.4
[2022-05-06] MEDS ORDERED: Heparin 5,000 UNITS/ML VIAL SC SCH (21:00)
== END 2022-05-06 14:21 | disposition home or self-care (01) | DRG 177 ==
LOC: ERS 18:37 → 2NO 19:36 → OBSVTOIN 20:05 → IMCU/EMU 22:28 → T4-B 05-03 16:42
PROVIDERS: ADMIT Student in an Organized Health Care Education/Training Program; ATTEND Internal Medicine
DX: J69.0 Pneumonitis due to inhalation of food and vomit (principal); J96.01 Acute respiratory failure with hypoxia; I69.954 Hemiplegia and hemiparesis following unspecified cerebrovascular disease affecting left non-dominant side; J44.1 Chronic obstructive pulmonary disease with (acute) exacerbation; Z20.822 Contact with and (suspected) exposure to COVID-19; M10.9 Gout, unspecified; I73.9 Peripheral vascular disease, unspecified; F17.210 Nicotine dependence, cigarettes, uncomplicated; R13.10 Dysphagia, unspecified; I12.9 Hypertensive chronic kidney disease with stage 1 through stage 4 chronic kidney disease, or unspecified chronic kidney disease; N18.9 Chronic kidney disease, unspecified; Z79.899 Other long term (current) drug therapy; Z79.51 Long term (current) use of inhaled steroids; Z79.52 Long term (current) use of systemic steroids; I69.991 Dysphagia following unspecified cerebrovascular disease
CPT/HCPCS: 36415; 36600; 71045; 78451; 80048; 81001; 82805; 83605; 83735; 83880; 84145; 85025; 87040; 87077; 87086; 87186; 93306; 94640; 94660; A9540; J0295; J0456; J0696; J1650; J1940; J2920; J2930; J3370; J3475; J3490; J7050; J7620